=== PATIENT | female | born 1960 | race Caucasian/White ===

== ENCOUNTER 2025-07-23 17:02 | Emergency (ER) | payer OTHER ==
[~2025-07-23] VITALS: Ht 157.5 cm; Wt 90.7 kg
[2025-07-23 18:50] VITALS: TEMP 97.9
[2025-07-23] MEDS ORDERED: BELLADONNA ALK/PHENOBARBITAL 5 ML UDC PO STA (19:09)
[2025-07-23] MEDS: LIDOCAINE VISC 2% SOLN 15 ML UDC PO ONE (19:28)
[2025-07-23] MEDS: MAGNESIUM/ALUMINUM/SIMETHICONE 30 ML UDC PO ONE (19:29)
[2025-07-23 20:00] VITALS: PULSE 104; RESP 17
[2025-07-23 20:41] LABS: BASOPHILS % 0.6 % (0.0-1.0); EOSINOPHILS % 0.0 % (0.0-6.0); LYMPHOCYTES % 27.5 % (18.0-39.1); MONOCYTES % 6.2 % (4.4-11.3); NEUTROPHILS % 65.4 % (38.7-80.0); RED CELL DISTRIBUTION WIDTH 13.2 % (11.7-14.4)
[2025-07-23 20:56] LABS: EST GLOMERULAR FILTRATION RATE 97.0 ML/MIN (>=60)
[2025-07-23] MEDS ORDERED: ONDANSETRON HCL INJ 2MG/ML 2ML 2 MG/ML VIAL ONE (21:14)
[2025-07-23] MEDS ORDERED: KETOROLAC TROMETHAMINE 30 MG/ML VIAL ONE (21:15)
[2025-07-23] MEDS: ONDANSETRON HCL INJ 2MG/ML 2ML 2 MG/ML VIAL IV STA (21:19)
[2025-07-23] MEDS: KETOROLAC TROMETHAMINE 30 MG/ML VIAL IV STA (21:19)
[2025-07-23] MEDS: TRAMADOL HCL 50 MG TAB PO ONE (21:21)
[2025-07-23] MEDS ORDERED: ULTRAM 50MG50 MG PO (21:46)
[2025-07-23] MEDS ORDERED: ONDANSETRON ODT4 MG PO (21:47)
[2025-07-23 22:45] VITALS: BP 157/66; PULSE 99; RESP 19; O2SAT 99
== END 2025-07-23 21:54 | disposition home or self-care (01) ==
LOC: ER 19:10
DX: K08.89 Other specified disorders of teeth and supporting structures (principal); K29.70 Gastritis, unspecified, without bleeding; I10 Essential (primary) hypertension; M54.9 Dorsalgia, unspecified; G89.29 Other chronic pain; G20.A1 Parkinson's disease without dyskinesia, without mention of fluctuations
CPT/HCPCS: 36415; 71045; 80053; 83690; 84484; 85025; 99284; J1885; J2405; J2470; 93005